=== PATIENT | male | born 1960 | race Caucasian/White ===

== ENCOUNTER 2022-07-01 13:47 | Emergency (ER) | payer OTHER ==
[~2022-07-01] VITALS: Ht 157.5 cm; Wt 64.4 kg
[2022-07-01 13:54] VITALS: BP 137/112
[2022-07-01] MEDS ORDERED: NAPR-54 PO (16:38)
--- NOTE | 2022-07-01 17:01 | NUR ---
The patient's care was reviewed and supervised by Fanny Carroll, RN, RN.
--- NOTE | 2022-07-01 17:01 | NUR ---
PT LEFT WITHOUT DISCHARGE PAPERWORK. MD JUDD NOTIFIED.
== END 2022-07-01 17:01 | disposition home or self-care (01) ==
LOC: MED 13:47
DX: M25.562 Pain in left knee (principal); E03.9 Hypothyroidism, unspecified; F03.90 Unspecified dementia, unspecified severity, without behavioral disturbance, psychotic disturbance, mood disturbance, and anxiety; Z79.899 Other long term (current) drug therapy
CPT/HCPCS: 73560; 99283